=== PATIENT | female | born 1980 | race African-American/Black ===

== ENCOUNTER → 2017-04-22 | Outpatient (REF) | payer OTHER ==
[2017-04-22 20:56] LABS: APPEARANCE, URINE HAZY (CLEAR); BACTERIA, URINE AUTO NEGATIVE (NEGATIVE); BILIRUBIN, URINE AUTO NEGATIVE (NEGATIVE); BLOOD, URINE BLOOD 2+ (NEGATIVE); COLOR, URINE YELLOW (YELLOW); GLUCOSE, URINE (UA) AUTO NEGATIVE (NEGATIVE); KETONE, URINE AUTO NEGATIVE (NEGATIVE); LEUKOCYTE ESTERASE, URINE AUTO NEGATIVE (NEGATIVE); MUCUS, URINE SMALL (NEGATIVE); NITRITE, URINE AUTO NEGATIVE (NEGATIVE); PROTEIN, URINE AUTO NEGATIVE (NEGATIVE); RBC, URINE AUTO 8 /HPF (0-3); SPECIFIC GRAVITY URINE AUTO 1.023 (1.002-1.035); SQUAMOUS EPITHELIAL CELL UR AU 0 /HPF (0-6); UROBILINOGEN, URINE AUTO 0.2 mg/dL (0.0-2.0); WBC, URINE AUTO 1 /HPF (0-3)
== END ==
LOC: M SFHCLERA 16:22
DX: R31.9 Hematuria, unspecified (principal)

== ENCOUNTER 2017-05-17 09:22 | Emergency (ER) | payer OTHER | END 2017-05-17 11:07 | disposition home or self-care (01) | LOC: M ED 09:22 | DX: M25.562 Pain in left knee (principal); R03.0 Elevated blood-pressure reading, without diagnosis of hypertension; Z98.84 Bariatric surgery status; Z79.899 Other long term (current) drug therapy | CPT/HCPCS: 73564 ==

== ENCOUNTER 2017-08-06 06:09 | Day surgery (SDC) | payer OTHER ==
[2017-08-06] MEDS: LR 1,000 ML IV ×3 (06:00→16:15)
[~2017-08-06 06:09] MED LIST: LIDOCAINE 1% MDV 20ML VIAL SQ
[2017-08-06] MEDS ORDERED: ROPIvacaine 0.5% 30 ML INJECTION (J2795 PER 1MG) (06:10)
[2017-08-06] MEDS ORDERED: EPINEPHrine INJ 1 MG/ML 1ML AMP (06:10)
[2017-08-06] MEDS ORDERED: fentaNYL 100 MCG/2 ML INJECTION (J3010) As Ordered ×6 (06:40→13:08)
[2017-08-06] MEDS ORDERED: MIDAZOLAM INJ 2 MG/2 ML VIAL (J2250) As Ordered ×2 (06:40→13:10)
[2017-08-06] MEDS: BUPIVACAINE HCL 0.5% 10 ML VIAL As Ordered (06:58)
[2017-08-06] MEDS: fentaNYL 100 MCG/2 ML INJECTION (J3010) IV ×6 (07:06→14:10)
[2017-08-06] MEDS: MIDAZOLAM INJ 2 MG/2 ML VIAL (J2250) IV ×2 (07:06→07:07)
[2017-08-06] MEDS ORDERED: PROPOFOL 200 MG/20 ML VIAL As Ordered (07:06)
[2017-08-06] MEDS ORDERED: ROCURONIUM BROMIDE 50 MG/5 ML VIAL As Ordered ×4 (07:06→11:48)
[2017-08-06] MEDS: EPINEPHrine 1MG/ML INJ 30ML MD-VIAL As Ordered (10:25)
[2017-08-06] MEDS: EPINEPHrine INJ 1 MG/ML 1ML AMP As Ordered (10:52)
[2017-08-06] MEDS: ceFAZolin 2 GM/D5W 50 ML IV BAG (J0690 PER 500MG) As Ordered (12:22)
[2017-08-06] MEDS ORDERED: FUROSEMIDE 100 MG/10 ML VIAL (J1940) As Ordered (12:23)
[2017-08-06] MEDS ORDERED: dexameTHASONE 4 MG/ML 1ML VIAL (J1100) As Ordered (12:33)
[2017-08-06] MEDS ORDERED: NEOSTIGMINE 10 MG/10 ML VIAL (J2710) As Ordered (12:33)
[2017-08-06] MEDS ORDERED: GLYCOPYRROLATE INJ 0.2 MG/ML 2 ML VIAL As Ordered ×2 (12:33)
[2017-08-06] MEDS ORDERED: KETOROLAC 60 MG/2 ML VIAL (J1885) As Ordered (12:33)
[2017-08-06] MEDS ORDERED: METOCLOPRAMIDE INJ 10MG/2ML VIAL (J2765) As Ordered (12:33)
[2017-08-06] MEDS ORDERED: ONDANSETRON 4MG/2ML VIAL (J2405) As Ordered (12:33)
[2017-08-06] MEDS ORDERED: SUGAMMADEX SODIUM 500 MG/5 ML VIAL (BRIDION) As Ordered (12:34)
[2017-08-06] MEDS ORDERED: METOCLOPRAMIDE INJ 10MG/2ML VIAL (J2765) IV (13:45)
[2017-08-06] MEDS ORDERED: ONDANSETRON 4MG/2ML VIAL (J2405) IV ×2 (13:45→16:15)
[2017-08-06] MEDS ORDERED: MEPERIDINE INJ 25 MG/ML VIAL (J2175) IV (13:45)
[2017-08-06] MEDS: PERCOCET 5MG/325MG TAB PO (13:55)
[2017-08-06] MEDS: ACETAMINOPHEN 500 MG TAB PO ×2 (14:00→21:21)
[2017-08-06] MEDS ORDERED: oxyCODONE 5MG TAB PO (16:15)
[2017-08-06] MEDS: oxyCODONE 5MG TAB PO (18:47)
[2017-08-06] MEDS: MIRALAX *UNIT DOSE* 17GM PACKET PO (21:18)
[2017-08-07] MEDS: oxyCODONE 5MG TAB PO ×3 (00:27→10:07)
[2017-08-07] MEDS: KETOROLAC 30 MG/ML VIAL (J1885) IV (01:39)
[2017-08-07] MEDS: LR 1,000 ML IV (02:15)
[2017-08-07] MEDS: MORPHINE 4 MG/ML 1ML VIAL/SYRINGE (J2270) IV ×2 (03:56→06:33)
[2017-08-07] MEDS: ACETAMINOPHEN 500 MG TAB PO ×2 (05:07→13:35)
[2017-08-07] MEDS: MIRALAX *UNIT DOSE* 17GM PACKET PO (08:36)
[2017-08-07] MEDS: MORPHINE 15 MG SA TAB PO (08:36)
== END 2017-08-07 15:35 | disposition home or self-care (01) ==
LOC: M SDC 06:09 → M MS5PR 14:40 → M SDC 08-07 15:35
DX: S83.512A Sprain of anterior cruciate ligament of left knee, initial encounter (principal); S83.412A Sprain of medial collateral ligament of left knee, initial encounter; M24.10 Other articular cartilage disorders, unspecified site; M23.222 Derangement of posterior horn of medial meniscus due to old tear or injury, left knee; M94.262 Chondromalacia, left knee; Z98.84 Bariatric surgery status; Z90.710 Acquired absence of both cervix and uterus; X58.XXXA Exposure to other specified factors, initial encounter; Y93.89 Activity, other specified; Y92.89 Other specified places as the place of occurrence of the external cause; Y99.8 Other external cause status
CPT/HCPCS: 27422

== ENCOUNTER → 2018-10-15 | Outpatient (CLI) | payer OTHER ==
[~2018-10-15] MED LIST changes: +LEXA1TAB PO; -LIDOCAINE 1% MDV 20ML VIAL SQ; +PRENTAB55 PO; +VITA50005 PO
--- NOTE | 2018-10-15 23:31 | ECGEPIP ---
[facility] Test Date: 2018-10-15 Pat Name: ANNA RINCON Department: Room: - Gender: Female History Instructor: MARYJANE : 1980 Requested By: LUIS Bauer Order Number: [id number] Reading MD: Jose Alejandro Cardona Measurements Intervals [place] Rate: 71 P: 16 MA: 168 QRS: -4 QRSD: 116 T: -2 QT: 385 QTc: 420 Interpretive Statements SINUS RHYTHM MODERATE INTRAVENTRICULAR CONDUCTION DELAY MODERATE VOLTAGE CRITERIA FOR LVH, CONSIDER NORMAL VARIANT NONSPECIFIC T-WAVE ABNORMALITY No prior ECG available for comparison. Electronically Signed on 10-15-2018 23:31:08 EDT by Jose Alejandro Cardona
== END ==
LOC: M EKG 11:40
PROVIDERS: ATTEND Orthopaedic Surgery
DX: Z01.810 Encounter for preprocedural cardiovascular examination (principal); M17.12 Unilateral primary osteoarthritis, left knee; S83.242D Other tear of medial meniscus, current injury, left knee, subsequent encounter; X58.XXXD Exposure to other specified factors, subsequent encounter